=== PATIENT | female | born 1960 | race Caucasian/White ===

== ENCOUNTER 2020-09-18 07:17 | Day surgery (SDC) | payer BC ==
[~2020-09-18] VITALS: Ht 165.1 cm; Wt 75.5 kg
[~2020-09-18 07:17] MED LIST: ACET500 PO; HYDCHL12.5 PO; Ibuprofen Ib200 MG PO
== END 2020-09-18 09:21 | disposition home or self-care (01) ==
LOC: ORSCSDS 07:17
PROVIDERS: Surgery
PROC: 0DBP8ZX Excision of Rectum, Via Natural or Artificial Opening Endoscopic, Diagnostic (ICD-10-PCS; principal; 2020-09-18 08:30)
DX: Z12.11 Encounter for screening for malignant neoplasm of colon (principal); K62.1 Rectal polyp; Z80.0 Family history of malignant neoplasm of digestive organs; E78.00 Pure hypercholesterolemia, unspecified; I10 Essential (primary) hypertension; Z79.899 Other long term (current) drug therapy
CPT/HCPCS: 88305; J2704; J7120

== ENCOUNTER 2024-07-23 07:50 | Day surgery (SDC) | payer BC | END 2024-07-23 23:00 | disposition home or self-care (01) | LOC: CT 07:50 | DX: R07.9 Chest pain, unspecified (principal); I48.0 Paroxysmal atrial fibrillation; I10 Essential (primary) hypertension; E78.5 Hyperlipidemia, unspecified; Z79.82 Long term (current) use of aspirin | CPT/HCPCS: 75574; Q9967 ==

== ENCOUNTER 2025-01-01 08:20 | Day surgery (SDC) | payer BC ==
[~2025-01-01] VITALS: Ht 165.1 cm; Wt 74.8 kg
[2025-01-01] MEDS ORDERED: LOSARTAN (09:33)
[2025-01-01 11:32] VITALS: BP 117/70
== END 2025-01-01 10:25 | disposition home or self-care (01) ==
LOC: ORSCSDS 08:20
PROVIDERS: Surgery
PROC: 0DBP8ZX Excision of Rectum, Via Natural or Artificial Opening Endoscopic, Diagnostic (ICD-10-PCS; principal; 2025-01-01 10:00)
PROC: 0DBL8ZX Excision of Transverse Colon, Via Natural or Artificial Opening Endoscopic, Diagnostic (ICD-10-PCS; principal; 2025-01-01 10:00)
DX: Z12.11 Encounter for screening for malignant neoplasm of colon (principal); Z86.0101 Personal history of adenomatous and serrated colon polyps; D12.3 Benign neoplasm of transverse colon; K62.1 Rectal polyp; Z80.0 Family history of malignant neoplasm of digestive organs; E78.00 Pure hypercholesterolemia, unspecified; I10 Essential (primary) hypertension; Z79.82 Long term (current) use of aspirin
CPT/HCPCS: 88305; J2704; J7120